=== PATIENT | male | born 1965 | race Caucasian/White ===

== ENCOUNTER 2018-08-03 06:17 | Observation (INO) | payer OTHER ==
[2018-08-03 07:28] LABS: ADD MAN DIFF? NO
[2018-08-03 07:29] LABS: WHITE BLOOD COUNT 6.9 10^3/ul (4.8-10.8)
[2018-08-03 07:29] LABS: BASOPHILS % 0.4 % (0.0-2.0); EOSINOPHILS # 0.3 10^3/ul (0.0-0.5); EOSINOPHILS % 3.8 % (0.0-7.0); LYMPHOCYTES # 1.8 10^3/ul (0.8-2.9); LYMPHOCYTES % 26.7 % (15.0-51.0); MEAN CORPUSCULAR HEMOGLOBIN 28.5 pg (29.0-33.0); MEAN CORPUSCULAR HGB CONC 33.3 g/dl (32.0-37.0); MEAN CORPUSCULAR VOLUME 85.6 fl (82.0-101.0); MEAN PLATELET VOLUME 10.9 fl (7.4-10.4); MONOCYTE # 0.4 10^3/ul (0.3-0.9); NEUTROPHIL # 4.3 10^3/ul (1.6-7.5); NEUTROPHILS % 62.8 % (39.0-77.0); PLATELET COUNT 176 10^3/UL (140-415); RED BLOOD COUNT 5.26 10^6/ul (4.70-6.10); RED CELL DISTRIBUTION WIDTH 11.9 % (11.5-14.5)
[2018-08-03 07:50] LABS: ALANINE AMINOTRANSFERASE 22 IU/L (13-69); ALBUMIN 3.9 g/dl (3.3-4.9); ALBUMIN/GLOBULIN RATIO 1.25; ALKALINE PHOSPHATASE 131 IU/L (42-121); ANION GAP 8 (5-13); ASPARTATE AMINO TRANSFERASE 19 IU/L (15-46); BILIRUBIN,INDIRECT 0.4 mg/dl (0-1.1); BILIRUBIN,TOTAL 0.4 mg/dl (0.2-1.3); BLOOD UREA NITROGEN 26 mg/dl (7-20); CALCIUM 8.9 mg/dl (8.4-10.2); CARBON DIOXIDE 26 mmol/L (21-31); CHLORIDE 102 mmol/L (97-110); CREATININE 0.93 mg/dl (0.61-1.24); Estimated GFR > 60 mL/min (>60); GLUCOSE 302 mg/dl (70-220); POTASSIUM 4.7 mmol/L (3.5-5.1); SODIUM 136 mmol/L (135-144)
[2018-08-03 08:01] LABS: TROPONIN-I < 0.012 ng/ml (0.000-0.120)
[2018-08-03] MEDS: NITROGLYCERIN 2% 1 GM OINT PKT TD (08:19)
[2018-08-03] MEDS: ASPIRIN 325 MG TAB PO (08:19)
[2018-08-03] MEDS ORDERED: ONDANSETRON 4 MG INJ IV ×2 (09:30→10:00)
[2018-08-03] MEDS ORDERED: ACETAMINOPHEN 325 MG TAB PO ×2 (09:30→10:00)
[2018-08-03] MEDS ORDERED: GLUCOSE GEL 15 GRAM TUBE BUCCAL (10:00)
[2018-08-03] MEDS ORDERED: DEXTROSE 50% 50 ML SYRINGE IV ×2 (10:00)
[2018-08-03] MEDS ORDERED: NACL 0.9% 3 ML SYG IV (10:00)
[2018-08-03] MEDS ORDERED: GLUCAGON 1 MG INJ IM (10:00)
[2018-08-03] MEDS ORDERED: GLUCOSE GEL 15 GRAM TUBE PO ×2 (10:00)
[2018-08-03 11:02] LABS: HEMOGLOBIN A1C 10.7 % (0-5.9)
[2018-08-03 11:23] LABS: FREE T4 (FREE THYROXINE) 1.18 ng/dl (0.64-1.79)
[2018-08-03] MEDS: INSULIN ASPART [NOVOLOG] 3 ML PEN SC ×5 (13:17→21:00)
[2018-08-03 14:02] LABS: CREATINE KINASE 77 IU/L (23-200)
[2018-08-03 14:14] LABS: CK INDEX 1.6; CK-MB 1.26 ng/ml (0.0-2.4); TROPONIN-I < 0.012 ng/ml (0.000-0.120)
[2018-08-03] MEDS: HYDROCODONE/APAP (5/325) TAB PO (16:53)
[2018-08-03 20:04] LABS: CREATINE KINASE 66 IU/L (23-200)
[2018-08-03 20:14] LABS: CK INDEX 1.6; CK-MB 1.07 ng/ml (0.0-2.4); TROPONIN-I < 0.012 ng/ml (0.000-0.120)
[2018-08-03] MEDS: INSULIN GLARGINE [LANTus] (100 UNITS/ML) SYG SC (21:54)
[2018-08-04 05:44] LABS: ADD MAN DIFF? NO
[2018-08-04 05:53] LABS: BASOPHILS % 0.5 % (0.0-2.0); EOSINOPHILS # 0.3 10^3/ul (0.0-0.5); EOSINOPHILS % 4.8 % (0.0-7.0); HEMATOCRIT 43.1 % (42.0-52.0); HEMOGLOBIN 14.4 g/dl (14.0-18.0); LYMPHOCYTES % 33.7 % (15.0-51.0); MEAN CORPUSCULAR HEMOGLOBIN 28.4 pg (29.0-33.0); MEAN CORPUSCULAR HGB CONC 33.4 g/dl (32.0-37.0); MEAN PLATELET VOLUME 11.2 fl (7.4-10.4); MONOCYTE # 0.4 10^3/ul (0.3-0.9); MONOCYTES % 6.5 % (0.0-11.0); NEUTROPHIL # 3.2 10^3/ul (1.6-7.5); NEUTROPHILS % 54.2 % (39.0-77.0); PLATELET COUNT 181 10^3/UL (140-415); RED BLOOD COUNT 5.07 10^6/ul (4.70-6.10); RED CELL DISTRIBUTION WIDTH 12.2 % (11.5-14.5)
[2018-08-04 05:53] LABS: WHITE BLOOD COUNT 5.9 10^3/ul (4.8-10.8)
[2018-08-04 06:29] LABS: PHOSPHORUS 3.7 mg/dl (2.5-4.9)
[2018-08-04 06:29] LABS: MAGNESIUM 1.6 mg/dl (1.7-2.5)
[2018-08-04 06:37] LABS: ANION GAP 8 (5-13); BLOOD UREA NITROGEN 18 mg/dl (7-20); CALCIUM 8.8 mg/dl (8.4-10.2); CARBON DIOXIDE 25 mmol/L (21-31); CHLORIDE 103 mmol/L (97-110); CREATININE 0.81 mg/dl (0.61-1.24); Estimated GFR > 60 mL/min (>60); GLUCOSE 254 mg/dl (70-220); POTASSIUM 4.4 mmol/L (3.5-5.1); SODIUM 136 mmol/L (135-144)
[2018-08-04 06:42] LABS: TROPONIN-I < 0.012 ng/ml (0.000-0.120)
[2018-08-04] MEDS: INSULIN ASPART [NOVOLOG] 3 ML PEN SC ×6 (07:56→17:10)
[2018-08-04] MEDS: FENOFIBRATE 48 MG TAB PO (08:08)
[2018-08-04] MEDS: ASPIRIN (EC) 81 MG TAB PO (08:08)
[2018-08-04] MEDS: AMLODIPINE 10 MG TAB PO (08:09)
[2018-08-04] MEDS: LISINOPRIL 20 MG TAB PO (08:09)
[2018-08-04] MEDS: CITALOPRAM 20 MG TAB PO (08:09)
[2018-08-04] MEDS: ENOXAPARIN 40 MG/0.4 ML SYG SC (08:17)
[2018-08-04] MEDS: REGADENOSON 0.4 MG/5 ML SYG (12:39)
[2018-08-04] MEDS: MAGNESIUM SULFATE 1 GM/D5W 100 ML IVPB (13:37)
== END 2018-08-04 18:18 | disposition home or self-care (01) ==
LOC: E/R 06:17 → TEL 09:23
DX: R07.9 Chest pain, unspecified (principal); I10 Essential (primary) hypertension; E11.9 Type 2 diabetes mellitus without complications; E78.00 Pure hypercholesterolemia, unspecified; E78.5 Hyperlipidemia, unspecified; E66.9 Obesity, unspecified; Z68.31 Body mass index [BMI] 31.0-31.9, adult; Z79.82 Long term (current) use of aspirin; Z79.84 Long term (current) use of oral hypoglycemic drugs
CPT/HCPCS: 36415; 71045; 78452; 80048; 80053; 82550; 82553; 82962; 83036; 83735; 84100; 84439; 84443; 84484; 85025; 93005; 93017; 93306; 99285-25; G0378